=== PATIENT | female | born 1960 | race Caucasian/White ===

== ENCOUNTER 2016-07-29 09:27 | Observation (INO) | payer BC ==
[2016-07-22 14:41] LABS: PFA (COL/EPI) > 300 SEC (72-180)
[2016-07-22 14:42] LABS: PFA (COL/ADP) 94 SEC (51-105)
[2016-07-22 15:42] LABS: BASOPHILS 0.4 %; BASOPHILS ABSOLUTE 0.03 10/3/uL (0.0-0.16); EOSINOPHILS 4.6 %; EOSINOPHILS ABSOLUTE 0.37 10/3/uL (0.0-0.53); HEMATOCRIT 42.8 % (36.0-48.0); HEMOGLOBIN 14.7 g/dL (12.0-16.0); IMMATURE GRANULOCYTES 0.3 %; IMMATURE GRANULOCYTES ABSOLUTE 0.02 10/3/uL (0.0-0.11); LYMPHOCYTES 21.7 %; LYMPHOCYTES ABSOLUTE 1.73 10/3/uL (0.67-4.30); MEAN CORPUS HGB CONC 34.3 g/dL (32.0-36.0); MEAN CORPUSCULAR HEMOGLOB 31.2 pg (26.0-34.0); MEAN CORPUSCULAR VOLUME 90.9 fL (80-100); MEAN PLATELET VOLUME 11.2 fL (9.2-13.0); MONOCYTES 6.4 %; MONOCYTES ABSOLUTE 0.51 10/3/uL (0.21-1.20); NEUTROPHILS 66.6 %; PLATELET COUNT 291 10/3/uL (150-400); RBC DISTRIBUTION WIDTH 13.6 % (12.0-16.0); RED CELL COUNT 4.71 10/6/uL (4.0-5.6)
[2016-07-22 15:44] LABS: MANUAL DIFF NO %
[2016-07-22 15:46] LABS: PARTIAL THROMBO TIME 25.2 SEC (22.5-37.2); PROTIME (NOT ORD) 13.2 SEC (12.0-14.5)
[2016-07-22 16:03] LABS: A/G RATIO 1.3 (0.7-1.9); ALBUMIN 4.5 G/DL (3.5-5.0); ALKALINE PHOSPHATASE 67 U/L (45-117); BUN (BLOOD UREA NITROGEN) 20 MG/DL (6-23); CALCIUM, SERUM 9.3 MG/DL (8.5-10.4); CHLORIDE, SERUM 107 MMOL/L (96-112); CO2 (CARBON DIOXIDE) 30 MMOL/L (24-34); CREATININE 0.75 MG/DL (0.55-1.02); GFR AFRICAN AMERICAN 103 ML/MIN (>=60); GFR NON AFRICAN AMERICAN 88 ML/MIN (>=60); GLOBULIN 3.5 G/DL (2.5-4.1); GLUCOSE, SERUM 81 MG/DL (60-99); POTASSIUM, SERUM 4.1 MMOL/L (3.5-5.3); SGOT(AST) 27 U/L (5-40); SGPT(ALT) 34 U/L (5-65); SODIUM, SERUM 145 MMOL/L (135-148); TOTAL BILIRUBIN 0.4 MG/DL (0-1.2)
--- NOTE | ~2016-07-29 | OP ---
Record Of Operation [facility] [address] [place]. [address] NAME: BALDOMERO MONTANA : 58 STATUS : ADM Humera PAT#: [id number] AGE: 56 ADM/REG DATE : 07/29/16 MR#: [id number] REPORT SERV DATE: 07/30/16 DICTATED BY: RICHARD TAM DATE: 07/29/16 REPORT STATUS : Draft TRANSCRIBED BY: MODFareed DATE: 07/29/16 DATE OF PROCEDURE: PREOPERATIVE DIAGNOSIS: Left breast invasive lobular cancer. POSTOPERATIVE DIAGNOSIS: Left breast invasive lobular cancer. PROCEDURES: 1. Bilateral nipple-sparing mastectomy through an inframammary crease incision. 2. Left axillary sentinel node biopsy. INDICATION FOR THE PROCEDURE: Ms Montana is a 56-year-old female, who is quite healthy, she palpated a mass in the left upper outer quadrant a year ago. Biopsy in my office recently showed an invasive lobular cancer, grade 2, ER/AL positive, HER2-negative with a gross fraction of 20%. The patient has subpectoral saline implants placed in the 90s. The patient is strongly motivated for bilateral mastectomy. She has met with Dr. Thornton, and she has been deemed a good candidate for inframammary crease nipple sparing mastectomies. The cancer is growing up to the skin in the left upper outer quadrant. I expect I may take a small ellipse of the skin overlying the tumor in addition. The patient presented for lymphoscintigraphy scan earlier today showing good uptake in the left axilla in a single lymph node. OPERATIVE FINDINGS: After appropriate consent was on the chart, the patient was taken to the operating room in supine position. She was placed under general anesthesia without any complications. The gamma probe was placed in the left axilla and good uptake was noted. Methylene blue was not utilized. The bilateral breast and axilla were prepped and draped in the sterile fashion. An incision was made in the inframammary crease on the left side and approximately 300 mL of saline was removed from the implant. Typically, the posterior dissection was performed first; however, with the implant in place and the muscle sent out, I decided to do the dissection alternating between superficial and posterior flaps. The breast was divided from the skin flap anteriorly with plasma blade to the extent of the breast parenchyma in all directions. It was carefully removed from the pectoralis muscle including the fascia posteriorly. The muscle was extremely thin inferiorly and the Plastic Surgery may have to use the implant capsule for reconstructive efforts. The breast was divided from the axillary fat pad at the axillary tail. Prior to dividing the breast from the axillary tail, the dissection of the tumor was encountered. An incision was made on the skin in the upper outer quadrant an ellipse of approximately 3 cm x 2 cm to include all of the firm plaque-like area of involvement. Dissection was carried down to the flap of the breast tissue, and this was included in the mastectomy specimen. The specimen was marked with sutures and Pathology was notified of the suture markings. The left axillary sentinel node was performed. The gamma probe was placed into the left axilla, and good uptake was noted in a single lymph node. Ex-vivo count of 46,000, this lymph node was soft, and sent for immediate evaluation by Pathology, and noted to be negative for obvious malignancy. The background count at that point was minimal. The wound was copiously irrigated with warm saline. Hemostasis was achieved. The wet lap sponge was placed. The right breast Record Of [place] [id number] [facility] [place]. [address] NAME: BALDOMERO MONTANA : 58 STATUS : ADM Humera PAT#: [id number] AGE: 56 ADM/REG DATE : 07/29/16 MR#: [id number] REPORT SERV DATE: 07/30/16 DICTATED BY: RICHARD TAM DATE: 07/29/16 REPORT STATUS : Draft TRANSCRIBED BY: MODL DATE: 07/29/16 mastectomy was performed in a similar fashion. An inframammary crease incision was made. Sharp dissection was carried down to the level of the breast parenchyma, and flaps were created both anteriorly and posteriorly with plasma blade. The breast was divided from the axillary fat pad at the axillary tail. The breast tissue on this side was much smaller in volume and flatten out over the implant. Centrally, there was extremely minimal breast tissue behind the nipple. The specimen was marked with sutures and sent for permanent Pathology. The wound was copiously irrigated with warm saline. Hemostasis was achieved. The wet lap sponge was placed. Dr. Thornton's team took over this portion of the case. Please see his dictation for further details. At the end of my portion of the case all counts were correct. ESTIMATED BLOOD LOSS: 150 mL. COMPLICATIONS: None. SPECIMEN: Bilateral breast and left axillary sentinel node x1. GARRICK/MODFareed Richard Tam MD / [id number] CC: MD Art Eddy Jr., D.O. [facility] Joseph Thornton M.D. Humaira Boogie M.D. Dea Hernandez APRN, [employer] ADMINISTRATOR
--- NOTE | ~2016-07-29 | OP ---
Record Of Operation [facility] [address] [place]. [address] NAME: BALDOMERO PEREZ : 58 STATUS : DIS Humera PAT#: [id number] AGE: 56 ADM/REG DATE : 07/29/16 MR#: [id number] REPORT SERV DATE: 07/31/16 DICTATED BY: RAPHAEL THORNTON DATE: 07/31/16 REPORT STATUS : Draft TRANSCRIBED BY: CHAYITO DATE: 07/31/16 DATE OF PROCEDURE: 07/29/2016 PREOPERATIVE DIAGNOSES: 1. Surgical absence of the breast. 2. Capsular contracture post saline augmentation. POSTOPERATIVE DIAGNOSES: 1. Surgical absence of the breast. 2. Capsular contracture post saline augmentation. PROCEDURES: Capsulectomy and immediate reconstruction with tissue expansion, acellular dermal matrix technique. INDICATIONS AND FINDINGS OF THE PROCEDURE: This 56-year-old female has planned for a bilateral breast reconstruction. This with ADM technique. She has old sub-pectoralis saline implants in place. She is appropriate for the above-described plan. DETAILS OF THE PROCEDURE: The patient presents on the operating table after bilateral inframammary crease based mastectomies were performed. We immediately turned to the right breast. The capsules of these old saline implants were noted to be very thick. The incision was subsequently made in the capsule, and we discovered that the entire undersurface of the right capsule had been calcified. A similar procedure was then carried out contralaterally. With this identified, the capsules were noted to be useless in terms of reconstruction and bilateral complete capsulectomies were carried out. This was with Bovie cautery. She was then thoroughly irrigated with Hibiclens solution injected with doses of ropivacaine solution. Meticulous attention was taken during these capsulectomies to preserve the pectoralis muscle. Our attention was then returned to the right breast. An acellular dermal matrix was then sewn to the cut edge of the pectoralis muscle. The purpose of the acellular dermal matrix was to supplement the soft tissue envelope, reassign or reconstruct the inframammary crease, and stabilize the position of the tissue video game script writer. A 600 mL Artoura tissue video game script writer was then placed behind the muscle AlloDerm construct, stabilized to the chest wall, and the AlloDerm was sewn tightly around its edge. She was then filled to 500, and our attention was turned contralaterally to the opposite breast. The right breast was then irrigated with Hibiclens solution. Again, the pectoralis muscle was re-evaluated and an acellular dermal matrix identical size was then sewn to the cut edge of the pectoralis muscle for an identical reason. An identical tissue video game script writer was placed behind the muscle AlloDerm construct and affixed to the chest wall with the ADM wrapped around it. She was then irrigated again with Hibiclens solution, our attention was returned to the right. Markings had been placed preoperatively to assign the extent of the horizontal excision of soft tissue envelope. This was adjusted so that the areolar complex to inframammary crease distance would then be about 7 cm with some tension. This excision was about 5 cm wide in the entire length of the inframammary crease. With this completed, then inferior drains were placed. Good bleeding was noted from the skin edge, and the inframammary crease was then stabilized with multiple layers of 3-0 PDS, and then the skin closure was accomplished with multiple layers of Monocryl through to an intracuticular in Record Of Operation [address] [address] NAME: BALDOMERO PEREZ : 58 STATUS : DIS Humera PAT#: [id number] AGE: 56 ADM/REG DATE : 07/29/16 MR#: [id number] REPORT SERV DATE: 07/31/16 DICTATED BY: RAPHAEL THORNTON DATE: 07/31/16 REPORT STATUS : Draft TRANSCRIBED BY: CHAYITO DATE: 07/31/16 the skin. Our attention was then turned contralaterally where a similar procedure was carried out. Again, the horizontal excision was carried out, and then multiple layers of PDS and Monocryl were used to stabilize the inframammary crease. With completion of the case, good perfusion of the areolar complex was noted. She was cleansed with peroxide. Nitroglycerin paste dry dressings were placed, and she was remanded to the recovery room in stable condition. All sponge and needle counts were correct. TRENT/CHAYITO Raphael Thornton M.D. / [id number] CC: MD Art Eddy Jr., D.O.
[~2016-07-29 09:27] MED LIST: ATV1 PO; B COMPLETE PO; MULTIVIT/MIN PO; SYN075 PO; VITC500 PO
[2016-07-30] MEDS ORDERED: PCET PO (07:41)
[2016-07-30] MEDS ORDERED: AT25 PO (07:42)
[2016-07-30] MEDS ORDERED: K500 PO (07:42)
[2016-07-30] MEDS ORDERED: PERCOCET 7.5/321 TAB PO (13:16)
== END 2016-07-30 14:07 | disposition home or self-care (01) ==
LOC: SDC 09:27 → SDC/OF 18:05 → 4EA 20:23
PROVIDERS: Surgery Surgery of the Hand; Surgery Surgical Oncology
PROC: 0HPU0JZ Removal of Synthetic Substitute from Left Breast, Open Approach (ICD-10-PCS; 2016-07-29)
PROC: 0HPT0JZ Removal of Synthetic Substitute from Right Breast, Open Approach (ICD-10-PCS; 2016-07-29)
PROC: 0HUU0JZ Supplement Left Breast with Synthetic Substitute, Open Approach (ICD-10-PCS; 2016-07-29)
PROC: 0HUT0JZ Supplement Right Breast with Synthetic Substitute, Open Approach (ICD-10-PCS; 2016-07-29)
PROC: 0HTV0ZZ Resection of Bilateral Breast, Open Approach (ICD-10-PCS; principal; 2016-07-29 13:15)
PROC: 07B60ZX Excision of Left Axillary Lymphatic, Open Approach, Diagnostic (ICD-10-PCS; 2016-07-29 13:15)
DX: C50.912 Malignant neoplasm of unspecified site of left female breast (principal); E06.3 Autoimmune thyroiditis; E03.9 Hypothyroidism, unspecified; F41.9 Anxiety disorder, unspecified; I10 Essential (primary) hypertension; Z98.890 Other specified postprocedural states; Z79.899 Other long term (current) drug therapy
CPT/HCPCS: 71020; 78195; 80053; 85025; 85576; 85610; 85730; 88304; 88307; 88331; 88342; 93005; 96374; 96375; 96376; A9270-GY; A9541; C1769; C1789; G0378; J0690; J1885; J2250; J2270; J2370; J2405; J2795; J3010; Q4116